=== PATIENT | female | born 1975 | race Caucasian/White ===

== ENCOUNTER 2022-08-31 10:12 | Emergency (ER) | payer SELFPAY | END 2022-08-31 11:50 | disposition left against medical advice (07) | LOC: JD.ED 10:12 | DX: Z53.21 Procedure and treatment not carried out due to patient leaving prior to being seen by health care provider (principal) ==

== ENCOUNTER 2022-11-12 18:58 | Emergency (ER) | payer MEDICAID | END 2022-11-12 20:03 | disposition home or self-care (01) | LOC: JD.ED 18:58 | DX: S30.0XXA Contusion of lower back and pelvis, initial encounter (principal); W22.8XXA Striking against or struck by other objects, initial encounter | CPT/HCPCS: 99282; 99283 ==

== ENCOUNTER 2023-02-15 18:45 | Emergency (ER) | payer SELFPAY ==
[2023-02-15 20:11] LABS: CORONAVIRUS COVID-19 NAA POSITIVE (NEGATIVE); INFLUENZA A NAA NEGATIVE (NEGATIVE); RESPIRATORY SYNCYTIAL VIR NAA NEGATIVE (NEGATIVE)
== END 2023-02-15 20:53 | disposition home or self-care (01) ==
LOC: JD.ED 18:45
DX: U07.1 COVID-19 (principal); G43.909 Migraine, unspecified, not intractable, without status migrainosus; F17.210 Nicotine dependence, cigarettes, uncomplicated; Z88.5 Allergy status to narcotic agent
CPT/HCPCS: 0241U; 99284

== ENCOUNTER 2023-05-16 17:18 | Emergency (ER) | payer MEDICAID ==
[2023-05-16] MEDS: Dexamethasone 10 MG/ML SDV PO ONE (19:24)
== END 2023-05-16 20:08 | disposition home or self-care (01) ==
LOC: JD.ED 17:18
DX: J02.9 Acute pharyngitis, unspecified (principal); F17.210 Nicotine dependence, cigarettes, uncomplicated; Z86.16 Personal history of COVID-19; Z88.5 Allergy status to narcotic agent
CPT/HCPCS: 87651; 99284; J8540; 99283

== ENCOUNTER 2023-09-01 21:21 | Emergency (ER) | payer MEDICAID ==
[2023-09-01 22:00] LABS: APPEARANCE,URINE SLT CLOUDY (Clear); BILIRUBIN,URINE NEGATIVE (Negative); COLOR,URINE YELLOW (Yellow); GLUCOSE,URINE NEGATIVE (Negative); KETONES,URINE NEGATIVE (Negative); LEUKOCYTE ESTERASE,URINE 2+ (Negative); NITRITE,URINE NEGATIVE (Negative); OCCULT BLOOD,URINE NEGATIVE (Negative); PROTEIN,URINE TRACE (Negative); UROBILINOGEN,URINE 0.2 (0.2-1.0)
[2023-09-01 22:08] LABS: BACTERIA,URINE MODERATE /hpf (FEW); MUCUS,URINE FEW /hpf (FEW); WBC,URINE 20-30 /hpf (0-5)
[2023-09-01] MEDS: Cefdinir 300 MG Cap PO ONE (23:39)
== END 2023-09-01 23:44 | disposition home or self-care (01) ==
LOC: JD.ED 21:21
DX: N39.0 Urinary tract infection, site not specified (principal); Z90.49 Acquired absence of other specified parts of digestive tract; F17.210 Nicotine dependence, cigarettes, uncomplicated; Z88.5 Allergy status to narcotic agent
CPT/HCPCS: 81001; 99283; A9270

== ENCOUNTER 2023-10-30 11:54 | Emergency (ER) | payer MEDICAID ==
[2023-10-30] MEDS: predniSONE 10 MG Tab PO ONE (12:45)
[2023-10-30] MEDS: Ketorolac 60 MG/2 ML SDV IM ONE (12:45)
== END 2023-10-30 12:50 | disposition home or self-care (01) ==
LOC: JD.ED 11:54
DX: G43.909 Migraine, unspecified, not intractable, without status migrainosus (principal); H65.92 Unspecified nonsuppurative otitis media, left ear; F17.210 Nicotine dependence, cigarettes, uncomplicated; Z90.49 Acquired absence of other specified parts of digestive tract; Z88.5 Allergy status to narcotic agent
CPT/HCPCS: 96372; 99283; J1885; J7512

== ENCOUNTER 2023-11-18 20:52 | Emergency (ER) | payer MEDICAID ==
[2023-11-18 21:45] LABS: BASOPHILS ABSOLUTE AUTO 0.1 K/mm3 (0.0-0.2); BASOPHILS PERCENT AUTO 0.9 % (0.0-1.0); EOSINOPHILS ABSOLUTE AUTO 0.3 K/mm3 (0.0-0.4); EOSINOPHILS PERCENT AUTO 3.6 % (0.0-6.0); HEMATOCRIT 43.8 % (37.0-47.0); HEMOGLOBIN 14.7 gm/dl (12.0-16.0); IMMATURE GRAN ABSOLUTE AUTO 0.01 K/mm3 (0.00-0.05); IMMATURE GRAN PERCENT AUTO 0.1 % (0.0-0.4); LYMPHOCYTES ABSOLUTE AUTO 2.8 K/mm3 (1.0-4.8); LYMPHOCYTES PERCENT AUTO 35.3 % (24.0-44.0); MEAN CORPUSCULAR HGB CONC 33.6 g/dl (32.0-36.0); MEAN CORPUSCULAR VOLUME 98.2 fl (83.0-99.0); MEAN PLATELET VOLUME 10.5 fl (9.4-12.3); MONOCYTES ABSOLUTE AUTO 0.5 K/mm3 (0.0-0.8); MONOCYTES PERCENT AUTO 6.4 % (0.0-8.0); NEUTROPHILS ABSOLUTE AUTO 4.2 K/mm3 (1.8-7.7); NEUTROPHILS PERCENT AUTO 53.7 % (41.0-71.0); PLATELET COUNT,PLT 271 K/mm3 (150-400); RED BLOOD CELL COUNT 4.46 M/mm3 (4.10-5.30); WHITE BLOOD CELL COUNT,WBC 7.82 K/mm3 (3.9-11.3)
[2023-11-18 22:16] LABS: A/G RATIO 1.1 (1-2); ALBUMIN 3.5 g/dl (3.4-5.0); BILIRUBIN TOTAL 0.2 mg/dL (0.2-1.0); CALCIUM 8.9 mg/dL (8.5-10.1); EST CRCL DRUG DOSING (CG) 60.06 mL/min; PROTEIN TOTAL,TP 6.8 g/dl (6.4-8.2)
[2023-11-18 22:22] LABS: TSH 3.398 uIU/mL (0.358-3.74)
== END 2023-11-18 23:00 | disposition home or self-care (01) ==
LOC: JD.ED 20:52
DX: R00.2 Palpitations (principal); M25.522 Pain in left elbow; F43.9 Reaction to severe stress, unspecified; F17.210 Nicotine dependence, cigarettes, uncomplicated; Z90.49 Acquired absence of other specified parts of digestive tract; Z88.5 Allergy status to narcotic agent
CPT/HCPCS: 36415; 73080-26-LT; 73080-LT; 80053; 84443; 84484; 85025; 93005; 93010; 99283; 99285

== ENCOUNTER 2024-07-29 22:25 | Emergency (ER) | payer MEDICAID, OTHER ==
[2024-07-29 23:26] LABS: BASOPHILS ABSOLUTE AUTO 0.1 K/mm3 (0.0-0.2); BASOPHILS PERCENT AUTO 0.6 % (0.0-1.0); EOSINOPHILS ABSOLUTE AUTO 0.2 K/mm3 (0.0-0.4); EOSINOPHILS PERCENT AUTO 1.6 % (0.0-6.0); HEMATOCRIT 44.3 % (37.0-47.0); HEMOGLOBIN 14.5 gm/dl (12.0-16.0); IMMATURE GRAN ABSOLUTE AUTO 0.03 K/mm3 (0.00-0.05); IMMATURE GRAN PERCENT AUTO 0.3 % (0.0-0.4); LYMPHOCYTES ABSOLUTE AUTO 3.5 K/mm3 (1.0-4.8); LYMPHOCYTES PERCENT AUTO 33.2 % (24.0-44.0); MEAN CORPUSCULAR HEMOGLOBIN 31.5 pg (28.0-32.0); MEAN CORPUSCULAR HGB CONC 32.7 g/dl (32.0-36.0); MEAN CORPUSCULAR VOLUME 96.3 fl (83.0-99.0); MEAN PLATELET VOLUME 10.9 fl (9.4-12.3); MONOCYTES ABSOLUTE AUTO 0.6 K/mm3 (0.0-0.8); MONOCYTES PERCENT AUTO 5.2 % (0.0-8.0); NEUTROPHILS ABSOLUTE AUTO 6.2 K/mm3 (1.8-7.7); NEUTROPHILS PERCENT AUTO 59.1 % (41.0-71.0); PLATELET COUNT,PLT 300 K/mm3 (150-400); WHITE BLOOD CELL COUNT,WBC 10.53 K/mm3 (3.9-11.3)
[2024-07-29] MEDS: Sodium Chloride 0.9% 10 ML Syringe FLUSH PRN (23:26)
[2024-07-29] MEDS: Sodium Chloride 0.9% 1,000 ML IV ONE (23:26)
[2024-07-29 23:43] LABS: A/G RATIO 0.9 (1-2); ALBUMIN 3.5 g/dl (3.4-5.0); ANION GAP 13.9 (5-15); BILIRUBIN TOTAL 0.2 mg/dL (0.2-1.0); CALCIUM 8.9 mg/dL (8.5-10.1); CREATININE 1.4 mg/dL (0.55-1.02); EST CRCL DRUG DOSING (CG) 42.44 mL/min; MAGNESIUM 1.9 mg/dL (1.8-2.4); POTASSIUM,K 3.9 mEq/L (3.5-5.1); PROTEIN TOTAL,TP 7.3 g/dl (6.4-8.2); TSH 9.142 uIU/mL (0.358-3.74)
[2024-07-30] LABS: T4 FREE 0.77 ng/dL (0.76-1.46)
== END 2024-07-30 01:31 | disposition home or self-care (01) ==
LOC: JD.ED 22:25
DX: R00.2 Palpitations (principal); F17.210 Nicotine dependence, cigarettes, uncomplicated; Z88.5 Allergy status to narcotic agent
CPT/HCPCS: 36415; 71045; 80053; 83735; 84439; 84443; 84484; 84703; 85025; 93005; 96360; 99285; J7030; 93010; 99283

== ENCOUNTER 2024-08-11 14:34 | Emergency (ER) | payer MEDICAID ==
[2024-08-11] MEDS: Ketorolac 10 MG Tab PO ONE (15:35)
== END 2024-08-11 16:19 | disposition home or self-care (01) ==
LOC: JD.ED 14:34
DX: S89.91XA Unspecified injury of right lower leg, initial encounter (principal); Z88.5 Allergy status to narcotic agent; Z90.49 Acquired absence of other specified parts of digestive tract; W10.9XXA Fall (on) (from) unspecified stairs and steps, initial encounter
CPT/HCPCS: 73562; 99283; A9270

== ENCOUNTER 2024-08-23 22:44 | Emergency (ER) | payer MEDICAID ==
[2024-08-23 23:33] LABS: BASOPHILS ABSOLUTE AUTO 0.1 K/mm3 (0.0-0.2); BASOPHILS PERCENT AUTO 0.5 % (0.0-1.0); EOSINOPHILS ABSOLUTE AUTO 0.2 K/mm3 (0.0-0.4); EOSINOPHILS PERCENT AUTO 1.8 % (0.0-6.0); HEMATOCRIT 42.9 % (37.0-47.0); HEMOGLOBIN 14.4 gm/dl (12.0-16.0); IMMATURE GRAN ABSOLUTE AUTO 0.03 K/mm3 (0.00-0.05); IMMATURE GRAN PERCENT AUTO 0.3 % (0.0-0.4); LYMPHOCYTES ABSOLUTE AUTO 3.7 K/mm3 (1.0-4.8); LYMPHOCYTES PERCENT AUTO 40.3 % (24.0-44.0); MEAN CORPUSCULAR HEMOGLOBIN 31.8 pg (28.0-32.0); MEAN CORPUSCULAR HGB CONC 33.6 g/dl (32.0-36.0); MEAN CORPUSCULAR VOLUME 94.7 fl (83.0-99.0); MEAN PLATELET VOLUME 10.6 fl (9.4-12.3); MONOCYTES ABSOLUTE AUTO 0.5 K/mm3 (0.0-0.8); MONOCYTES PERCENT AUTO 5.8 % (0.0-8.0); NEUTROPHILS ABSOLUTE AUTO 4.7 K/mm3 (1.8-7.7); NEUTROPHILS PERCENT AUTO 51.3 % (41.0-71.0); PLATELET COUNT,PLT 274 K/mm3 (150-400); RED BLOOD CELL COUNT 4.53 M/mm3 (4.10-5.30); WHITE BLOOD CELL COUNT,WBC 9.13 K/mm3 (3.9-11.3)
[2024-08-23] MEDS: Sodium Chloride 0.9% 1,000 ML IV ONE (23:45)
[2024-08-23] MEDS: Ondansetron 4 MG/2 ML SDV IVPUSH ONE (23:45)
[2024-08-23] MEDS: Sodium Chloride 0.9% 10 ML Syringe FLUSH PRN (23:46)
[2024-08-23 23:58] LABS: APPEARANCE,URINE CLEAR (Clear); BILIRUBIN,URINE NEGATIVE (Negative); COLOR,URINE LIGHT YELLOW (Yellow); GLUCOSE,URINE NEGATIVE (Negative); KETONES,URINE NEGATIVE (Negative); LEUKOCYTE ESTERASE,URINE NEGATIVE (Negative); NITRITE,URINE NEGATIVE (Negative); OCCULT BLOOD,URINE NEGATIVE (Negative); PH,URINE 6.5 (5.0-8.0); PROTEIN,URINE NEGATIVE (Negative); UROBILINOGEN,URINE 0.2 (0.2-1.0)
[2024-08-23 23:59] LABS: ALBUMIN 3.5 g/dl (3.4-5.0); BILIRUBIN TOTAL 0.2 mg/dL (0.2-1.0); BUN/CREATININE RATIO 8.3 (14-18); CREATININE 1.2 mg/dL (0.55-1.02); EST CRCL DRUG DOSING (CG) 49.51 mL/min; HCG QUALITATIVE,SERUM POSITIVE (NEGATIVE); MAGNESIUM 1.9 mg/dL (1.8-2.4); PROTEIN TOTAL,TP 7.2 g/dl (6.4-8.2); TSH 10.376 uIU/mL (0.358-3.74)
[2024-08-24 00:04] LABS: PRO B-TYPE NATRIUR PEPT,BNPPRO 58 pg/mL (0-125)
[2024-08-24 00:21] LABS: T4 FREE 0.93 ng/dL (0.76-1.46)
== END 2024-08-24 02:13 | disposition home or self-care (01) ==
LOC: JD.ED 22:44
DX: R00.2 Palpitations (principal); E78.00 Pure hypercholesterolemia, unspecified; F17.210 Nicotine dependence, cigarettes, uncomplicated; Z88.5 Allergy status to narcotic agent; Z86.16 Personal history of COVID-19; Z90.49 Acquired absence of other specified parts of digestive tract
CPT/HCPCS: 36415; 71045; 80053; 81003; 83690; 83735; 83880; 84439; 84443; 84484; 84702; 84703; 85025; 93005; 96361; 96374; 99285; J2405; J7030